=== PATIENT | male | born 1980 | race African-American/Black ===

== ENCOUNTER 2019-09-23 19:17 | Emergency (ER) | payer BC, OTHER ==
[~2019-09-23] VITALS: Ht 190.5 cm; Wt 159.7 kg
[2019-09-23] MEDS ORDERED: DESCOVY 200-251 EACH PO (19:36)
[2019-09-23] MEDS ORDERED: LAMOTRIGINE250 MG PO (19:37)
[2019-09-23 20:06] LABS: ABSOLUTE NEUTROPHILS 1.5 thou/uL (1.4-8.2); BASOPHILS 0.3 % (0.0-2.0); EOSINOPHILS 3.2 % (0.0-3.0); HEMATOCRIT 36.2 % (42.0-52.0); HEMOGLOBIN 12.1 gm/dL (14.0-18.0); LYMPHOCYTES 50.5 % (24.0-44.0); MCHC 33.4 g/dL (28.0-37.0); MCV 89.8 fL (80.0-100.0); MONOCYTES 9.7 % (1.0-8.0); PLATELET COUNT 181 thou/uL (150-400); POLYS 36.3 % (36.0-66.0); RBC 4.03 mil/uL (4.50-6.00); RDW 14.1 % (10.5-14.5)
[2019-09-23 20:14] LABS: ANION GAP 5 mmol/L (7-16); BUN 10 mg/dL (7-18); CALCIUM 8.7 mg/dL (8.5-10.1); CHLORIDE 105 mmol/L (98-107); CO2 28 mmol/L (21-32); CREATININE 1.1 mg/dL (0.7-1.3); GLUCOSE 116 mg/dL (74-106); POTASSIUM 3.6 mmol/L (3.5-5.1); SODIUM 138 mmol/L (136-145)
[2019-09-23 20:24] LABS: ALBUMIN 3.4 g/dL (3.4-5.0); SGOT 21 U/L (15-37); SGPT 30 U/L (30-65); TOTAL BILIRUBIN 0.3 mg/dL (<0.1-1.0); TOTAL PROTEIN 7.6 g/dL (6.4-8.2); TROPONIN-I <0.06 ng/mL (<0.06)
[2019-09-23 20:27] VITALS: BP 131/73
[2019-09-23] MEDS ORDERED: PROAIR HFA8.5 GM INH (20:52)
--- NOTE | 2019-09-26 09:12 | EKG ---
[facility] [place] [address] ELECTROCARDIOGRAM REPORT Name: RUGGIEROWER Room #: DEP [facility]#: [id number] Admission: 09/23/19 Attend Phys: Discharge: 09/23/19 Date of : 82 Report #: [id number] THIS REPORT FOR: cc: Kiet Gilman K. Steven DO Lundgren, Craig H. MD [facility] THIS REPORT FOR: //name// [facility] ED Test Date: 2019-09-23 Test Time: 19:48:02 Pat Name: TABITHA ROCA Department: Room: Gender: Mending Carrier: [id number] : 1980 Requested By: Yosef Kinney Order Number: [id number] MD: Seb Venegas Measurements Intervals Sturgeon Rate: 73 P: 37 NC: 175 QRS: 33 QRSD: 96 T: 55 QT: 376 QTc: 415 Interpretive Statements Sinus rhythm No significant abnormality No previous ECG available for comparison Electronically Signed On 09-26-2019 9:11:19 CDT by Seb Venegas [email or web address] <ELECTRONICALLY SIGNED> By: Seb Venegas MD, [facility] 09/26/1911 47 47 Seb Venegas MD, [facility] /EPI
== END 2019-09-23 21:00 | disposition home or self-care (01) ==
LOC: ER 19:17
PROVIDERS: Physician Assistant
DX: R06.02 Shortness of breath (principal)

== ENCOUNTER → 2019-10-10 | Outpatient (CLI) | payer BC, OTHER ==
[~2019-10-10] MED LIST: DESCOVY 200-251 EACH PO; LAMOTRIGINE250 MG PO; PROAIR HFA8.5 GM INH
--- NOTE | 2019-10-10 13:27 | 2DMMODE ---
[facility] [place] [address] 2 D/M-MODE ECHOCARDIOGRAM Name: TABITHA ROCA Room #: REG RICARDO Sotelo#: [id number] Admission: 10/10/19 Attend Phys: Dennis Robles MD, FA Discharge: Date of : 82 Report #: [id number] THIS REPORT FOR: cc: Kiet Gilman K. Steven DO Blick, David R. MD [facility] ~ APPROVED REPORT Study performed: 10/10/2019 11:13:50 EXAM: Comprehensive 2D, Doppler, and color-flow Echocardiogram Patient Location: Echo lab Status: routine BSA: 2.80 HR: 54 bpm BP: 148/89 mmHg Rhythm: NSR Other Information Study Quality: Adequate Indications SOA 2D Dimensions RVDd: 45.17 mm IVSd: 9.80 (7-11mm) LVOT Diam: 25.04 (18-24mm) LVDd: 59.42 mm PWd: 9.20 (7-11mm) Ascending Ao: 27.88 (22-36mm) LVDs: 37.01 (25-40mm) Aortic Root: 32.29 mm IVC: 13.00 mm Volumes Left Atrial Volume (Systole) Single Plane 4CH: 98.89 mL Single Plane 2CH: 79.15 mL LA ESV Index: 36.00 mL/m2 Aortic Valve AoV Peak Patricio.: 1.42 m/s AO Peak Gr.: 8.08 mmHg LVOT Max P.46 mmHg LVOT Max V: 1.17 m/s COMFORT Vmax: 4.05 cm2 [facility] [address] [place] [address] 2 D/M-MODE ECHOCARDIOGRAM Name: TABITHA ROCA Room #: REG JET JohnsonDionisio#: [id number] Admission: 10/10/19 Attend Phys: Dennis Robles MD Discharge: Date of : 82 Report #: [id number] Mitral Valve E/A Ratio: 1.8 MV Decel. Time: 166.28 ms MV E Max Patricio.: 0.86 m/s MV A Patricio.: 0.49 m/s MV PHT: 48.22 ms IVRT: 101.50 ms Pulmonary Valve PV Peak Patricio.: 1.06 m/s PV Peak Gr.: 4.51 mmHg Pulmonary Vein P Vein S: 0.71 m/s P Vein A: 0.36 m/s P Vein D: 0.59 m/s P Vein A Dur.: 166.1 msec P Vein S/D Ratio: 1.20 Tricuspid Valve RAP Estimate: 5.00 mmHg Left Ventricle Left ventricle is at the upper limits of normal. There is normal LV segmental wall motion. There is normal left ventricular wall thickness. The left ventricular systolic function is normal. The left ventricular ejection fraction is within the normal range. LVEF is 55%. The left ventricular diastolic function is normal. Right Ventricle Right ventricle is mildly dilated. The right ventricular systolic function is normal. Atria Left atrium is mildly dilated. Right atrium is mildly dilated. Aortic Valve The aortic valve is normal in structure. No aortic regurgitation is present. There is no aortic valvular stenosis. Mitral Valve The mitral valve is normal in structure. Trace to mild mitral regurgitation. No evidence of mitral valve stenosis. Tricuspid Valve The tricuspid valve is normal in structure. There is no tricuspid valve regurgitation noted. Unable to assess PA pressure. [facility] [place] [employer] [place] [address] 2 D/M-MODE ECHOCARDIOGRAM Name: TABITHA ROCA Room #: REG CL [employer]#: [id number] Admission: 10/10/19 Attend Phys: Dennis Robles MD Discharge: Date of : 82 Report #: [id number] Pulmonic Valve The pulmonary valve is normal in structure. Trace pulmonic regurgitation. Great Vessels The aortic root is normal in size. IVC is normal in size and collapses >50% with inspiration. Pericardium There is no pericardial effusion. <Conclusion> LVEF is 55%. Left atrium is mildly dilated. Trace to mild mitral regurgitation. <ELECTRONICALLY SIGNED> By: Dennis Robles MD, [facility] 10/10/19 1326 1326 1326 Dennis Robles MD, FACC /INF
== END ==
LOC: CV 10:31
DX: I34.0 Nonrheumatic mitral (valve) insufficiency (principal)

== ENCOUNTER 2019-10-21 15:45 | Emergency (ER) | payer BC, OTHER ==
[~2019-10-21] VITALS: Ht 182.9 cm; Wt 157.4 kg
[2019-10-21 15:50] VITALS: BP 167/100
[2019-10-21] MEDS ORDERED: TRAZODONE HCL50 MG PO (15:54)
[2019-10-21 16:02] LABS: URINE BILIRUBIN NEGATIVE (Negative); URINE BLOOD NEGATIVE (Negative); URINE CLARITY CLEAR; URINE COLOR YELLOW; URINE GLUCOSE-RANDOM* NEGATIVE (Negative); URINE KETONES NEGATIVE (Negative); URINE LEUKOCYTES-REFLEX NEGATIVE (Negative); URINE NITRITE-REFLEX NEGATIVE (Negative); URINE PROTEIN (DIPSTICK) NEGATIVE (Negative); URINE SPECIFIC GRAVITY >= 1.030 (1.005-1.035)
== END 2019-10-21 16:25 | disposition home or self-care (01) ==
LOC: ER 15:45
PROVIDERS: Nurse Practitioner Family
DX: J02.9 Acute pharyngitis, unspecified (principal)